=== PATIENT | female | born 1955 | race Caucasian/White ===

== ENCOUNTER 2016-12-22 14:14 | Inpatient (IN) | payer MEDICARE, OTHER ==
--- NOTE | ~2016-12-22 | OR ---
Unit #: [id number] #: [id number] Patient: MIRI SUAREZ [id number] [address] [address] [id number] Natalya MR#: [id number] NAME: MIRI SUAREZ. ROOM: 565 Date of Procedure: 12/25/2016 Admission Date: 12/22/2016 Surgeon: Nicholas Castaneda M.D. : 1955 Attending Physician: Debra Abdi M.D. Primary Care Physician: Debra Abdi M.D. OPERATIVE REPORT JOB NOTE: CC: DR. ABDI INDICATIONS FOR PROCEDURE Esophagogastroduodenoscopy with balloon dilatation. INDICATIONS FOR PROCEDURE The patient with significant dysphagia and severe iron-deficiency anemia. MEDICATIONS Monitored anesthesia. POSTOPERATIVE FINDINGS 1. Very tight esophageal ring. I could not pass the regular EGD scope through this, it was between 15 to 20 cm castanon and appears benign. The scope was completed with a nasoscope. 2. Distal esophagus shows hiatal hernia and esophageal ring at GE junction that was nonobstructing. 3. Evidence of previous gastrectomy, both loops afferent and efferent are intact. 4. Dilation carried out with a balloon up to 12 mm. 5. No significant complications. PLAN 1. Aggressive PPI therapy. 2. Further dilation after 6 to 8 weeks. DESCRIPTION OF PROCEDURE The patient was explained of the procedure, risks, and benefits along with risks and benefits of anesthesia. She was brought to the endoscopy room. Propofol anesthesia was given. The scope was passed down the mouth into the esophagus. I could not go past through the stricture. At this point, I used a nasoscope and finished the EGD exam. Scope was then pulled out. I reintroduced regular EGD scope and dilated with a balloon as described. I was able to pass the scope after the dilation down through this strictured area. Gently, the scope was pulled out. She tolerated it well. No major complications were seen. Dictated by... Omega Florian/margarita Unit #: [id number] #: [id number] Patient: MIRI SUAREZ TD: 12/26/2016 02:19 JOB #: [id number] OPERATIVE REPORT Page 1 of 1 X Nicholas Castaneda MD PROCEDURE OPERATIVE NOTE
--- NOTE | ~2016-12-22 | CO ---
Unit #: [id number] #: [id number] Patient: MIRI SUAREZ [id number] [address] [place], [place] [address] [id number] I MR#: [id number] NAME: MIRI SUAREZ ROOM: 565 Age: 61 Sex: F Admission Date: 12/22/2016 : 1955 Attending Physician: Debra Cai M.D. Primary Care Physician: Debra Cai M.D. CONSULTATION REPORT REASON FOR CONSULTATION Shortness of breath. HISTORY OF PRESENT ILLNESS 61-year-old female with past medical history significant of irritable bowel syndrome, history of narcotic abuse, arthritis. SURGICAL HISTORY 1. Cholecystectomy. 2. Appendectomy. 3. Gastric bypass. 4. Small bowel obstruction secondary to adhesions. MEDICATIONS Home medications reviewed. ALLERGIES Ultram, Lortab, amitriptyline. SOCIAL HISTORY Ex-smoker. No alcohol, no drug abuse. PHYSICAL EXAMINATION VITAL SIGNS: Currently temperature is 98, pulse 78, respirations 16, blood pressure 121/70. NEUROLOGICAL: Awake, alert, oriented. No neuro deficit. HEENT: PERRLA. NECK: Supple. No JVD. CHEST: Bilateral air entry, bilateral mild rhonchi. GI: Nontender, soft. Bowel sounds positive. EXTREMITIES: No edema. SKIN: No rashes, no ulcers. LYMPHATIC: No lymphadenopathy. LABS AND IMAGING Reviewed. Blood gas pH of 7.38, pO2 was 126. X-ray on admission showed loculated pleural fluid left upper lateral chest. ASSESSMENT AND PLAN 1. Shortness of breath, history of chronic obstructive pulmonary disease likely. 2. Severe anemia, symptomatic. Unit #: [id number] #: [id number] Patient: MIRI SUAREZ 3. Dysphagia. Plan is to continue patient on oxygen, bronchodilator. Order non-contrast CT of the chest to better evaluate the abnormality on the chest x-ray. Continue to monitor hemoglobin and hematocrit. Further workup as per primary service. We will continue to monitor. Please see orders for detailed plan. Thank you very much for this consultation. We will continue to follow patient along with you very closely. Dictated by... Kelly Garcia M.D. Cassandra TD: 12/23/2016 16:23 JOB #: [id number] CONSULTATION REPORT Page 1 of 1 X Kelly Garcia MD CONSULTATION REPORT
--- NOTE | ~2016-12-22 | CO ---
Unit #: [id number] #: [id number] Patient: MIRI SUAREZ [id number] [address] [place], [place] [address] [id number] I MR#: [id number] NAME: MIRI SUAREZ. ROOM: 565 Age: 61 Sex: F Admission Date: 12/22/2016 : 1955 Attending Physician: Debra Cai M.D. Primary Care Physician: Debra Cai M.D. Consultation Date: 12/24/2016 CONSULTATION REPORT REASON FOR CONSULTATION Severe anemia, dysphagia. HISTORY OF PRESENTING ILLNESS Ms. Suarez is a 61-year-old female admitted with shortness of breath, who was found to be severely anemic. She has been having difficulty swallowing going on for a month, mostly was eating soft food and liquids only. She denies any recent weight loss. She denies any hematemesis or melena. She denies any change in bowel movements or blood in the stool. She had a colonoscopy done [address] Rodriguez apparently was negative. PAST MEDICAL HISTORY Significant for gastric bypass surgery in 1982, irritable bowel syndrome, chronic back pain. PAST SURGICAL HISTORY She is status post cholecystectomy and small bowel obstruction secondary to adhesions. MEDICATIONS At home included aspirin, she says she has been taking up to 10 to 12 baby aspirin a day, Lortab for pain, amitriptyline, and Soma. SOCIAL HISTORY Denies smoking, alcohol, or drug abuse. FAMILY HISTORY No history of colon cancer. REVIEW OF SYSTEMS A complete 10-point review of systems was done, which significant for weakness generalized along with easy exertional shortness of breath. Review of rest of the systems was negative. PHYSICAL EXAMINATION VITAL SIGNS: Stable, blood pressure 150/60. HEENT: Pupils are equal and reactive. Sclerae anicteric. Oral mucosa moist. NECK: No JVD. No lymphadenopathy. CHEST: Clear to auscultation bilaterally. CARDIOVASCULAR: Regular rate and rhythm. No murmurs. ABDOMEN: Soft, nontender, and nondistended. EXTREMITIES: Without clubbing, cyanosis, or edema. Unit #: [id number] #: [id number] Patient: MIRI SUAREZ NEUROLOGIC: Intact. SKIN: Warm and dry. DIAGNOSTIC STUDIES LABORATORY RESULTS: CBC shows a hemoglobin on arrival of 4.7, 8.4 now with transfusions, severely low MCV at 60, normal white count, normal platelet count. Chemistries show normal BUN and creatinine, normal LFTs, albumin of 3, B12 and folate are normal. ASSESSMENT AND PLAN The patient with, 1. Dysphagia 1 month to solids mostly, no significant painful swallowing. Differential includes possible obstructive lesions, esophagitis, malignancies, benign strictures, etc. We will need an upper endoscopy for evaluation. Risks and benefits explained. We will plan for tomorrow. 2. Severe iron-deficiency anemia, most likely from chronic iron malabsorption secondary to gastric bypass, however, other lesions including colon cancer, gastric ulcers, and other bleeding lesions has to be ruled out given her age and worsening of symptoms. Again, we will plan with esophagogastroduodenoscopy for now and colonoscopy possibly as an outpatient for further evaluation. 3. After confirming iron and ferritin levels. We will give iron infusion while in the hospital. 4. Shortness of breath, possible chronic obstructive pulmonary disease. 5. Chronic back issues. Thank you Dr. Cai for this interesting consult. We will follow along. Dictated by... Omega Florian/margarita TD: 12/25/2016 03:40 JOB #: [id number] CONSULTATION REPORT Page 1 of 1 X Nicholas Castaneda MD X CONSULTATION REPORT
--- NOTE | ~2016-12-22 | CT57 ---
[facility] A Service of [facility] & [facility] RADIOLOGY TEXT RESULTS PATIENT: MIRI SUAREZ LOCATION: [facility] 565-01 : [birth year] UNIT #: [id number] AGE: [address]: Debra Cai MD SEX: F ORDER DR: [id number] [facility] [address] [facility]. [place], [place] [address] [id number] I MR#: [id number] Acc #: [id number] NAME: MIRI SUAREZ. : 1955 SEX: F STUDY DATE/TIME: 12/23/2016 19:43 UNIT: [facility] ROOM: [facility] STUDY DESCRIPTION: CT Chest Wo Cont Attending Physician: Debra Cai M.D. Ordering Physician: Kelly Garcia M.D. Primary Care Physician: Debra Cai M.D. MEDICAL IMAGING REPORT This report is preliminary unless electronic signature is present EXAM CT chest without contrast HISTORY Shortness of air. Weakness for 3 months. Pleural effusion. Recent pneumonia. TECHNIQUE This CT exam was performed with one or more of the following radiation dose reduction techniques: automatic exposure control, adjustment of mA and/or kV according to patient size, and iterative reconstruction. FINDINGS CT chest without contrast demonstrates a small amount of loculated fluid in the superior margin of the left interlobar fissure extending to the left mid chest. Minimal patchy infiltrate or atelectasis in the lingula. There is also mild linear atelectasis or scarring in the medial right lower lobe. No airspace infiltrates in the remainder of the lungs. No adenopathy. No pleural effusion on the right. Postop changes in the stomach. Moderate amount of stool in the splenic flexure of the colon, and mild elevation of the left hemidiaphragm. IMPRESSION 1. Mild patchy atelectasis or infiltrate in the lingula. 2. No additional infiltrates. 3. Small amount of loculated pleural fluid in the superior margin of the left interlobar fissure. 4. No adenopathy. Dictated by... Dakota Alfredo M.D. [facility] A Service of [facility] & [facility] RADIOLOGY TEXT RESULTS PATIENT: MIRI SUAREZ LOCATION: [facility] 565- : [birth year] UNIT #: [id number] AGE: [address]: Debra Cai MD SEX: F ORDER DR: THIS IS AN ELECTRONICALLY VERIFIED REPORT Dakota Alfredo M.D. at 12/24/2016 11:33 PM DFL/to TD: 12/24/2016 16:28 JOB #: [id number] MEDICAL IMAGING REPORT Page 1 of 1 COPY
--- NOTE | ~2016-12-22 | HP ---
Unit #: [id number] #: [id number] Patient: MIRI SUAREZ [id number] [address] [address] [id number] I MR#: [id number] NAME: MIRI SUAREZ ROOM: [facility] Age: 61 Sex: F Admission Date: 12/22/2016 : 1955 Attending Physician: Debra Cai M.D. Primary Care Physician: Debra Cai M.D. HISTORY AND PHYSICAL ADMISSION DIAGNOSES 1. Shortness of air on exertion. 2. Severe anemia. 3. History of gastric bypass. 4. Dysphagia. 5. Irritable bowel syndrome. HISTORY OF PRESENT ILLNESS Ms. Suarez is a 61-year-old female patient of Dr. Debra Cai, who was seen see at the primary care physician's office today with the complaints of increasing fatigue, weakness, and shortness of air, dyspnea, especially on exertion. Since about three months ago, the patient was directly admitted to . Initial evaluation was significant for hemoglobin and hematocrit 12.7 and 19.4. The patient does have a history of gastric bypass. Denies any bloody stools. Denies any peptic ulcer disease. Complains of some dysphagia, with the difficulty of falling every now and then. Denies any chest pain, headache, dizzy spells or syncope. Denies any nausea, vomiting, diarrhea, dysuria, or abdominal pain. REVIEW OF SYSTEMS Twelve-point review of systems on this patient is basically negative except as above. PAST MEDICAL HISTORY Significant for: 1. Irritable bowel syndrome. 2. History of narcotic abuse. 3. Arthritis. PAST SURGICAL HISTORY Extensive and includes: 1. Cholecystectomy. 2. Appendectomy. 3. Gastric bypass. 4. Small bowel obstruction secondary to adhesions. HOME MEDICATIONS I do not have these in front of me. This will be clarified with the Pharmacy. Patient will be restarted accordingly. ALLERGIES 1. Ultram. 2. Lortab. Unit #: [id number] #: [id number] Patient: MIRI SUAREZ 3. Amitriptyline. 4. Soma. SOCIAL HISTORY She denies currently any tobacco, alcohol, or illicit drugs. Apparently, she is a former smoker. Ever been diagnosed with COPD. FAMILY HISTORY Unremarkable. PHYSICAL EXAMINATION VITAL SIGNS: BP 152/62, heart rate 90, respirations 18, temperature 98.8. GENERAL: The patient is 61-year-old female in no acute distress. HEENT: Head is atraumatic. Pupils equal, round, reactive to light and accommodation. Extraocular muscles are intact. Oropharynx is clear. NECK: Supple. No mass, no JVD, no bruits. LUNGS: Diminished at the bases but otherwise clear. HEART: S1, S2. No murmurs. ABDOMEN: Soft, nontender, nondistended. LOWER EXTREMITIES: Without any significant cyanosis, clubbing, or edema. NEUROLOGIC: Grossly intact without any focal deficits. DIAGNOSTIC STUDIES LABORATORY: Cardiac enzymes negative. Chemistry unremarkable. Hemoglobin and hematocrit as above. Repeat hemoglobin and hematocrit, came back around the same with a hemoglobin of 4.8. ASSESSMENT AND PLAN 1. Symptomatic severe anemia with the shortness of air and dyspnea on exertion along with increasing fatigue. Type and cross for 2 units. Will give 20 of Lasix in between the units. Will consult Gastroenterology for possible EGD but I am suspecting this is most likely secondary to her malabsorption secondary to her history of gastric bypass. 2. Dysphagia. Gastroenterology will be consulted. Start on IV PPI. 3. GI and DVT prophylaxis with PPI and SCDs. Dictated by Omega Weiss/isabel TD: 12/22/2016 22:49 JOB #: [id number] Unit #: [id number] #: [id number] Patient: MIRI SUAREZ HISTORY AND PHYSICAL Page 1 of 1 X Trino Geronimo MD HISTORY AND PHYSICAL
--- NOTE | ~2016-12-22 | CR63 ---
[facility] A Service of [facility] RADIOLOGY TEXT RESULTS PATIENT: MIRI SUAREZ LOCATION: [facility] [place] [facility] 565-01 : [birth year] UNIT #: [id number] AGE: [address]: Debra Cai MD SEX: F ORDER DR: [id number] [facility] [address] [facility] [place], [place] [address] [id number] I MR#: [id number] #: [id number] NAME: MIRI SUAREZ. : 1955 SEX: F STUDY DATE/TIME: 12/22/2016 15:31 UNIT: [facility] [place] [facility] ROOM: [facility] STUDY DESCRIPTION: CR Chest 2 View Attending Physician: Debra Cai M.D. Ordering Physician: Debra Cai M.D. Primary Care Physician: Debra Cai M.D. MEDICAL IMAGING REPORT This report is preliminary unless electronic signature is present EXAM Chest x-ray, 12/22/2016. HISTORY 61-year-old female referred for a history of respiratory failure. Patient describes a 3-month history of shortness of air, weakness. TECHNIQUE PA and lateral upright chest series. FINDINGS The examination shows an extrapleural masslike opacity at the peripheral margin of the left upper lobe laterally. The patient has a reported recent history of pneumonia, and a loculated postpneumonic pleural fluid collection is suspected. CT examination of the chest may be helpful for more complete characterization if indicated. The lungs appear clear. No visible pulmonary infiltrate or basilar pleural effusion. Heart size and pulmonary vascularity are normal. Moderately severe scoliosis. Surgical clips at the esophagogastric junction region. IMPRESSION Probable loculated pleural fluid in the left upper lateral chest as described. STAT * RESULT Dictated by... Naga Banks M.D. [facility] Service of [facility] RADIOLOGY TEXT RESULTS PATIENT: MIRI SUAREZ LOCATION: [facility] [place] [facility] 565-01 : [birth year] UNIT #: [id number] AGE: [address]: Debra Cai MD SEX: F ORDER DR: THIS IS AN ELECTRONICALLY VERIFIED REPORT Naga Banks M.D. at 12/22/2016 10:41 PM GERMANIA/robby TD: 12/22/2016 16:21 JOB #: [id number] MEDICAL IMAGING REPORT Page 1 of 1 COPY
--- NOTE | ~2016-12-22 | EKG ---
PATIENT: MIRI SUAREZ UNIT #: [id number] Ventricular Rate: 94 BPM Atrial Rate: 94 BPM P-R Interval: 122 ms QRS Duration: 96 ms Q-T Interval: 378 ms QTC Calculation(Bezet): 472 ms P Withams: 45 degrees Calculated R Withams: -8 degrees Calculated T Withams: 87 degrees Diagnosis Line: Sinus rhythm with occasional Premature ventricular Diagnosis Line: complexes Diagnosis Line: Nonspecific ST abnormality Diagnosis Line: Prolonged QT Diagnosis Line: Abnormal ECG Diagnosis Line: When compared with ECG of 12-DEC-2011 23:34, Diagnosis Line: Premature ventricular complexes are now Present Diagnosis Line: Minimal criteria for Anterior infarct are no Diagnosis Line: longer Present Diagnosis Line: Nonspecific T wave abnormality now evident in Diagnosis Line: Anterolateral leads Diagnosis Line: Confirmed by BEV BONDS MD ([id number]) on 12/24/2016 Diagnosis Line: 7:03:35 AM INTERPRETING MD: VAMSHI CRAIG
--- NOTE | ~2016-12-22 | DS ---
Unit #: [id number] #: [id number] Patient: LEIGH WILSON [id number] [address] [address] [id number] I MR#: [id number] NAME: LEIGH WILSON. ROOM: 565 Age: 61 Sex: F Admission Date: 12/22/2016 : 1955 Discharge Date: 12/26/2016 Attending Physician: Debra Cai M.D. Primary Care Physician: Debra Cai M.D. DISCHARGE SUMMARY FINAL DIAGNOSES 1. Severe anemia, status post packed red blood cells transfusion. The patient's hemoglobin on admission was 4.7. On discharge, it is 8.8. 2. Dyspnea which was secondary to anemia, has resolved. 3. Dysphagia, status post esophagogastroduodenoscopy which shows tight stricture status post dilatation to 12 mm. Repeat esophagogastroduodenoscopy needs to be done in six to eight weeks. 4. Iron-deficiency anemia: The patient received iron transfusion during hospitalization. 5. History of gastric bypass surgery. DISCHARGE MEDICATIONS 1. Protonix 40 mg p.o. b.i.d. 2. Prozac 40 mg p.o. daily. CONSULTATION DURING HOSPITALIZATION Dr. Castaneda from GI services. PROCEDURE Procedure performed during hospitalization was EGD which shows the patient had very tight esophageal ring. Distal esophagus shows hiatal hernia and esophageal ring at GE junction that was nonobstructing. Evidence of previous gastrectomy was seen. Dilatation was carried out with a balloon up to 12 mm. DIAGNOSTIC STUDIES LABORATORY: Lab workup on discharge: Sodium 137, potassium 4.2, chloride 111, BUN 9, creatinine 0.4, alkaline phosphatase 120. CBC shows WBC 5.2, hemoglobin 8.8, hematocrit 30.5, platelet count 201,000. Ferritin is 2 which is very low. Serum iron is 16, which is critical low. Transferrin was 314. Vitamin B12 level was 234. Folate 14.1. The patient's BNP on admission was 411. HOSPITAL COURSE Ms. Leigh Wilson is a 61-year-old female who is a new patient to our practice, who was seen for the first time in the office and found to be dyspneic, low saturation, and pale conjunctivae and was transferred to [facility] and was admitted in telemetry unit. The patient's hemoglobin was 4.7. Packed RBC transfusion was done. [employer] was consulted. The patient is doing much better at this time. The patient has severe iron-deficiency anemia and also B12 deficiency anemia. The patient has had gastric bypass. It is possible that is the cause. The patient has malabsorption. The patient did receive iron transfusion during hospitalization. She is doing much better Unit #: [id number] #: [id number] Patient: LEIGH WILSON at this time. Her dyspnea is completely resolved, would like to go home. The patient had dysphagia, was found to have esophageal stricture that was dilated. She is doing much better again. Patient needs to follow with primary care provider in one week. DISCHARGE INSTRUCTIONS 1. Followup primary care provider in one week. 2. CBC and BMP to be done in one week. 3. Followup Dr. Castaneda in three to four weeks. 4. The patient will need B12 shots every week for four weeks and then q. monthly. 5. The patient would need colonoscopy done as an outpatient. Dictated by... Debra Cai M.D. Kimberlyn TD: 12/27/2016 09:38 JOB #: [id number] DISCHARGE SUMMARY Page 1 of 1 X Debra Cai MD X DISCHARGE SUMMARY
[~2016-12-22 14:14] MED LIST: CYMBALTA PO; FLEXERIL10 MG PO; LORTAB 10-5001 EACH PO; LYRICA75 MG PO; NEXIUM PO; PHENERGAN PR; PHENERGAN SUPP25 MG PR; PHENERGAN25 MG PO; ULTRAM PO
[2016-12-22] MEDS ORDERED: PROZAC40 M1 PO (14:59)
[2016-12-22] MEDS ORDERED: DILAUDID 22 MG/1 M2 IL (15:23)
[2016-12-22 16:26] LABS: HEMATOCRIT 19.4 % (35.0-45.0); MEAN CELL VOLUME 60.5 FL (83-96); MEAN CORPUSCULAR HEMOGLOBIN 14.5 PG (28-34); MEAN PLATELET VOLUME 8.7 FL (6.5-11.5); RED BLOOD COUNT 3.21 X10e (3.90-5.30); RED CELL DISTRIBUTION WIDTH 24.9 % (11.0-15.5)
[2016-12-22 16:33] LABS: HEMOGLOBIN 4.7 gm/dL (12.0-16.0)
[2016-12-22 16:53] LABS: ALBUMIN SERUM 3.3 g/dL (3.5-5.0); BILIRUBIN,TOTAL 0.7 mg/dL (0.2-2.0); CREATININE SERUM 0.6 mg/dL (0.6-1.4); GLOM FILT RATE Estimated 99.8 mL/min (>60); POTASSIUM 4.6 mmol/L (3.5-5.1); PROTEIN TOTAL SERUM 5.9 g/dL (6.0-8.3)
[2016-12-22 17:11] LABS: %MB 3.4 % (0.0-4.0); MB 2.5 ng/ml
[2016-12-22 17:15] LABS: ARTERIAL BLD GAS O2 SATURATION 93.4 % (90.0-100.0); ARTERIAL BLOOD GAS CARBOXY HB 0.5 %sat (0.0-9.0); ARTERIAL BLOOD GAS HCO3 19.8 mmol/L; ARTERIAL BLOOD GAS MET HB 3.2 %sat (0.0-2.0); ARTERIAL BLOOD GAS PCO2 33.5 mmHg (35.0-45.0); ARTERIAL BLOOD GAS pH 7.381 (7.350-7.450)
[2016-12-22 17:16] LABS: ARTERIAL BLOOD GAS ALLEN TEST NORMAL; ARTERIAL BLOOD GAS ART SITE LEFT BRACHIAL; ARTERIAL BLOOD GAS DELIVERY NASAL CANNULA; ARTERIAL DRAW? YES
[2016-12-22 18:52] LABS: HEMATOCRIT 20.2 % (35.0-45.0); MEAN CELL VOLUME 61.3 FL (83-96); MEAN CORPUSCULAR HEMOGLOBIN 14.5 PG (28-34); MEAN CORPUSCULAR HGB CONC 23.7 g/dL (30-36); MEAN PLATELET VOLUME 8.6 FL (6.5-11.5); RED BLOOD COUNT 3.3 X10e (3.90-5.30); RED CELL DISTRIBUTION WIDTH 25.3 % (11.0-15.5)
[2016-12-22 18:55] LABS: HEMOGLOBIN 4.8 gm/dL (12.0-16.0)
[2016-12-23 05:42] LABS: HEMATOCRIT 26.4 % (35.0-45.0); MEAN CORPUSCULAR HEMOGLOBIN 19.2 PG (28-34); MEAN CORPUSCULAR HGB CONC 28.5 g/dL (30-36); MEAN PLATELET VOLUME 8.8 FL (6.5-11.5); RED BLOOD COUNT 3.92 X10e (3.90-5.30); RED CELL DISTRIBUTION WIDTH 31.5 % (11.0-15.5); WHITE BLOOD COUNT 5.6 X10e3 (4.0-10.5)
[2016-12-23 05:43] LABS: HEMOGLOBIN 7.5 gm/dL (12.0-16.0); MEAN CELL VOLUME 67.3 FL (83-96)
[2016-12-23 06:28] LABS: FOLATE (FOLIC ACID) 14.1 ng/mL (>5.8)
[2016-12-23 07:01] LABS: CALCIUM SERUM 7.9 mg/dL (8.4-10.2); CREATININE SERUM 0.5 mg/dL (0.6-1.4); POTASSIUM 3.9 mmol/L (3.5-5.1); PROTEIN TOTAL SERUM 5.5 g/dL (6.0-8.3)
[2016-12-23 14:58] LABS: HEMATOCRIT 28.6 % (35.0-45.0); HEMOGLOBIN 8.4 gm/dL (12.0-16.0)
[2016-12-24 09:24] LABS: HEMATOCRIT 31.5 % (35.0-45.0); HEMOGLOBIN 9.1 gm/dL (12.0-16.0); MEAN CORPUSCULAR HEMOGLOBIN 20.1 PG (28-34); MEAN CORPUSCULAR HGB CONC 28.8 g/dL (30-36); MEAN PLATELET VOLUME 8.9 FL (6.5-11.5); RED BLOOD COUNT 4.5 X10e (3.90-5.30); RED CELL DISTRIBUTION WIDTH 30.4 % (11.0-15.5); WHITE BLOOD COUNT 4.7 X10e3 (4.0-10.5)
[2016-12-25 08:39] LABS: CALCIUM SERUM 8.2 mg/dL (8.4-10.2); CREATININE SERUM 0.5 mg/dL (0.6-1.4)
[2016-12-26 06:16] LABS: HEMATOCRIT 30.5 % (35.0-45.0); HEMOGLOBIN 8.8 gm/dL (12.0-16.0); MEAN CELL VOLUME 71.3 FL (83-96); MEAN CORPUSCULAR HEMOGLOBIN 20.6 PG (28-34); MEAN CORPUSCULAR HGB CONC 28.9 g/dL (30-36); MEAN PLATELET VOLUME 8.4 FL (6.5-11.5); RED BLOOD COUNT 4.28 X10e (3.90-5.30); RED CELL DISTRIBUTION WIDTH 31.2 % (11.0-15.5)
[2016-12-26 06:53] LABS: ALBUMIN SERUM 2.5 g/dL (3.5-5.0); BILIRUBIN,TOTAL 0.4 mg/dL (0.2-2.0); BUN/CREATININE RATIO 22.5; CALCIUM SERUM 8.3 mg/dL (8.4-10.2); CREATININE SERUM 0.4 mg/dL (0.6-1.4); POTASSIUM 4.2 mmol/L (3.5-5.1); PROTEIN TOTAL SERUM 4.8 g/dL (6.0-8.3)
[2016-12-26] MEDS ORDERED: PROTONIX PO (17:23)
== END 2016-12-26 17:46 | disposition home or self-care (01) | DRG 812 ==
LOC: C5C 14:14
PROVIDERS: Hospitalist; Internal Medicine; Physician Assistant Medical
PROC: 02HV33Z Insertion of Infusion Device into Superior Vena Cava, Percutaneous Approach (ICD-10-PCS; 2016-12-22)
PROC: 4A02X4A Measurement of Cardiac Electrical Activity, Guidance, External Approach (ICD-10-PCS; 2016-12-22)
PROC: 30233N1 Transfusion of Nonautologous Red Blood Cells into Peripheral Vein, Percutaneous Approach (ICD-10-PCS; 2016-12-22)
PROC: 0D748ZZ Dilation of Esophagogastric Junction, Via Natural or Artificial Opening Endoscopic (ICD-10-PCS; principal; 2016-12-25 14:00)
DX: D50.9 Iron deficiency anemia, unspecified (principal); K22.2 Esophageal obstruction; J44.9 Chronic obstructive pulmonary disease, unspecified; R13.10 Dysphagia, unspecified; K58.9 Irritable bowel syndrome, unspecified; M19.90 Unspecified osteoarthritis, unspecified site; Z90.49 Acquired absence of other specified parts of digestive tract; Z98.84 Bariatric surgery status; K44.9 Diaphragmatic hernia without obstruction or gangrene; Z87.891 Personal history of nicotine dependence
CPT/HCPCS: 36600; 71020; 71250; 80048; 80053; 82435; 82550; 82553; 82607; 82728; 82746; 82803; 83540; 83880; 84466; 84484; 85014; 85018; 85027; 86850; 86900; 86901; 86923; 93005; 94640; 94760; C9113; J1940; J2550; J2916; P9016